=== PATIENT | female | born 1975 ===

== ENCOUNTER 2022-06-25 23:44 | Emergency (ER) | payer SELFPAY ==
[~2022-06-25] VITALS: Ht 167.6 cm; Wt 85.0 kg
[2022-06-25 23:53] VITALS: BP 127/77
[2022-06-26] VITALS (21 sets, daily range): BP systolic 102–134; BP diastolic 64–93
[2022-06-26 00:21] LABS: HEMATOCRIT 49.4 % (37.0-47.0); HEMOGLOBIN 17.2 g/dl (12.0-16.0); IMMATURE GRANULOCYTES 0.4 % (0.0-5.0); MEAN CELL VOLUME 91.3 fL CALC (80.0-100.0); MEAN CORPUSCULAR HGB 31.8 pG CALC (26.0-32.0); MEAN CORPUSCULAR HGB CONC 34.8 g/dL CAL (32.0-36.0); NEUT# 13.12 thou/uL (2.00-7.15); RED BLOOD COUNT 5.41 mill/uL (4.20-5.60); RED CELL DISTRI WIDTH 15.7 % (11.5-15.5)
[2022-06-26 00:35] LABS: ALBUMIN 4.7 g/dL (3.2-5.0); ALKALINE PHOSPHATASE 82 u/l (38-126); ANION GAP 18 (6-22 (CALC)); BILIRUBIN, TOTAL 0.4 mg/dL (0.0-1.4); BUN 9 mg/dL (7-17); BUN/CREATININE RATIO 11 (12-20 (CALC)); CARBON DIOXIDE 23 mmol/l (22-30); CHLORIDE 105 mmol/l (95-108); CREATININE 0.8 mg/dL (0.5-1.0); ETHYL ALCOHOL 266 mg/dl (0-30); GFR FOR AFR.AMER. > 60 ML/MIN (>=60 (CALC)); GFR OTHER RACES > 60 ML/MIN (>=60 (CALC)); POTASSIUM 2.7 mmol/l (3.5-5.1); SGOT/AST 49 u/l (14-36); SODIUM 143 mmol/l (137-146)
== END 2022-06-26 06:20 | disposition home or self-care (01) | DRG 605 ==
LOC: ED 23:44
PROVIDERS: Emergency Medicine
DX: S80.12XA Contusion of left lower leg, initial encounter (principal); S40.022A Contusion of left upper arm, initial encounter; F10.129 Alcohol abuse with intoxication, unspecified; Y90.8 Blood alcohol level of 240 mg/100 ml or more; V48.5XXA Car driver injured in noncollision transport accident in traffic accident, initial encounter